=== PATIENT | female | born 1995 | race Two or more races ===

== ENCOUNTER 2022-02-16 03:20 | Observation (INO) | payer SELFPAY ==
[~2022-02-16] VITALS: Ht 152.4 cm; Wt 74.8 kg
[2022-02-16] MEDS ORDERED: TERBUTALINE SULFATE 1 MG/ML 1ML VIAL SC ONE (03:50)
[2022-02-16] MEDS ORDERED: TERBUTALINE SULFATE 1 MG/ML 1ML VIAL SC SCH (04:00)
== END 2022-02-16 05:18 | disposition home or self-care (01) ==
LOC: LDRP 03:20
PROVIDERS: ADMIT Obstetrics & Gynecology Obstetrics; ATTEND Obstetrics & Gynecology Obstetrics
DX: O62.9 Abnormality of forces of labor, unspecified (principal); O99.891 Other specified diseases and conditions complicating pregnancy; M54.9 Dorsalgia, unspecified; Z3A.36 36 weeks gestation of pregnancy
CPT/HCPCS: 59025; 81002; 94760; 96372; G0378; J3105

== ENCOUNTER 2022-02-28 17:05 | Inpatient (IN) | payer MEDICAID, OTHER ==
[~2022-02-28] VITALS: Ht 160 cm; Wt 72.6 kg
[2022-02-28] MEDS ORDERED: LACTATED RINGER'S 1,000 ML IV SCH (17:30)
[2022-02-28] MEDS ORDERED: PROMETHAZINE HCL 25 MG/ML 1ML IV PRN (17:30)
[2022-02-28] MEDS ORDERED: PHISODERM TOP SOLN 240ML BTL TOP PRN (17:30)
[2022-02-28] MEDS ORDERED: BUTORPHANOL TARTRATE 2 MG/1 ML VIAL IV PRN ×2 (17:30)
[2022-02-28] MEDS ORDERED: LIDOCAINE 2%HCL (LOCAL ANESTH.) INJ 10ml MDV IJ PRN (17:30)
[2022-02-28] MEDS ORDERED: PENICILLIN G POT 5MIL/D5 50ML 50 ML IV ONE ×2 (17:45→18:34)
[2022-02-28] MEDS ORDERED: LACT. RINGERS/OXYTOCIN 20UNITS 500 ML IV ONE ×2 (18:15→18:45)
[2022-02-28 18:30] LABS: Basophils # (auto) 0 10 ^3/uL (0-0.2); Basophils % (auto) 0.2 % (0.0-2.0); Eosinophils # (auto) 0.1 10 ^3/uL (0-0.8); Eosinophils % (auto) 0.6 % (0.0-7.0); Hemoglobin 10.9 g/dL (12.2-16.2); Lymphocytes # (auto) 1.6 10 ^3/uL (0.4-5.4); Lymphocytes % (auto) 15.9 % (10.0-50.0); Mean Corpuscular Hemoglobin 27.5 pg (28.0-32.0); Mean Corpuscular Hgb Conc. 34.1 g/dL (32.0-36.0); Mean Corpuscular Volume 80.6 fL (80.0-100.0); Monocytes # (auto) 0.8 10 ^3/uL (0-1.3); Monocytes % (auto) 7.6 % (0.0-12.0); Neutrophils # (auto) 7.6 10 ^3/uL (1.6-8.6); Neutrophils % (auto) 75.7 % (37.0-80.0); Nucleated Red Blood Cells % 0.2 %; Red Blood Cells 3.97 10^6/uL (4.0-5.20); Red Cell Distribution Width 14.2 % (11.8-14.3); White Blood Cell 10.1 10^3/uL (4.4-10.8)
[2022-02-28 18:46] LABS: INR 0.94 (0.9-1.15); Partial Thromboplastin Time 26.1 sec (24.6-33.4)
[2022-02-28 18:57] LABS: Albumin 2.6 g/dL (3.4-5.0); BUN/Creatinine Ratio 15.3; Calcium 8.5 mg/dL (8.5-10.1)
[2022-02-28 19:00] LABS: Bilirubin, Total 0.3 mg/dL (0.2-1.0); Total Protein 6.6 g/dL (6.4-8.2)
[2022-02-28] MEDS ORDERED: LACTATED RINGER'S 1,000 ML IV ONE (19:45)
[2022-02-28] MEDS ORDERED: ePHEDrine SULFATE 50 MG/ML AMP IV ONE (19:45)
[2022-02-28] MEDS ORDERED: ROPIVACAINE HCL 200 ML EPI SCH (19:45)
[2022-02-28] MEDS ORDERED: LIDOCAINE HCL 2 %PF INJ 10ML AMP IJ ONE (19:45)
[2022-02-28] MEDS ORDERED: fentaNYL CITRATE 100 MCG/2 ML VL IV ONE (19:45)
[2022-02-28] MEDS ORDERED: NALOXONE HCL 0.4 MG/ML VIAL IV ONE (19:45)
[2022-02-28] MEDS: ROPIVACAINE HCL 200 ML EPI SCH (20:29)
[2022-02-28 21:08] LABS: Urine Blood Negative /uL (Negative)
[2022-02-28 21:32] LABS: Alcohol, Urine < 3.0 mg/dL (0-10); Amphetamine Screen, Urine NEGATIVE (NEGATIVE); Barbiturate Scree,Urine NEGATIVE (NEGATIVE); Benzodiazephine Screen, Urine NEGATIVE (NEGATIVE); Cannabinoid Screen, Urine NEGATIVE (NEGATIVE); Cocaine Screen, Urine NEGATIVE (NEGATIVE); Opiate Scree,Urine NEGATIVE (NEGATIVE); Phencyclidine Screen, Urine NEGATIVE (NEGATIVE)
[2022-02-28] MEDS: PENICILLIN G POTASSIUM 2,500,000 UNITS in D5W 5% 50 ML IV SCH (23:31)
[2022-03-01] MEDS ORDERED: LACT. RINGERS/OXYTOCIN 20UNITS 1,000 ML IV SCH (02:15)
[2022-03-01] MEDS: PENICILLIN G POTASSIUM 2,500,000 UNITS in D5W 5% 50 ML IV SCH ×3 (03:04→10:52)
[2022-03-01] MEDS ORDERED: ONDANSETRON HCL 4 MG/2 ML VIAL IV PRN (04:30)
[2022-03-01] MEDS ORDERED: METHYLERGONOVINE MALEATE 0.2 MG/ML AMP IM ONE (07:01)
[2022-03-01] MEDS: WITCH HAZEL-GLYCERIN PAD TOP PRN (10:51)
[2022-03-01] MEDS: DERMOPLAST 60ML BOTTLE TOP PRN (10:51)
[2022-03-01] MEDS ORDERED: LIDOCAINE 2%HCL (LOCAL ANESTH.) INJ 20ML MDV ONE (10:54)
[2022-03-01] MEDS: ROPIVACAINE HCL 200 ML EPI SCH (11:12)
[2022-03-01] MEDS ORDERED: ACETAMINOPHEN 325 MG TAB PO PRN (13:00)
[2022-03-01] MEDS ORDERED: DOCUSATE SOD 100 MG CAP PO PRN (13:00)
[2022-03-01] MEDS ORDERED: ONDANSETRON ODT 4 MG TAB PO PRN ×2 (13:00→13:30)
[2022-03-01 15:00] VITALS: BP 97/50
[2022-03-01] MEDS: ACETAMINOPHEN 325 MG TAB PO PRN (15:35)
[2022-03-01] MEDS ORDERED: IBUPROFEN 800 MG TAB PO SCH (18:00)
[2022-03-01 18:30] VITALS: BP 101/59
[2022-03-01] MEDS: IBUPROFEN 800 MG TAB PO SCH (20:55)
[2022-03-01] MEDS ORDERED: DOCUSATE SOD 100 MG CAP PO SCH (22:00)
[2022-03-01 23:30] VITALS: BP 100/62
[2022-03-02 03:30] VITALS: BP 104/65
[2022-03-02] MEDS: IBUPROFEN 800 MG TAB PO SCH ×3 (04:01→13:12)
[2022-03-02] MEDS ORDERED: IBUP600T27 PO (04:14)
[2022-03-02 06:06] LABS: Rubella Antibodies, IgG 4.67 index (Immune >0.99)
[2022-03-02 06:18] LABS: RPR Non Reactive (Non Reactive)
[2022-03-02 06:59] VITALS: BP 102/59
[2022-03-02] MEDS: ACETAMINOPHEN 325 MG TAB PO PRN (10:30)
[2022-03-02 10:38] VITALS: BP 100/64
[2022-03-02] MEDS: WITCH HAZEL-GLYCERIN PAD TOP PRN (13:11)
[2022-03-02] MEDS: DERMOPLAST 60ML BOTTLE TOP PRN (13:11)
== END 2022-03-02 14:18 | disposition home or self-care (01) | DRG 560 ==
LOC: LDRP 17:05 → OBSVTOIN 17:10
PROVIDERS: ADMIT Obstetrics & Gynecology; ATTEND Obstetrics & Gynecology
PROC: 10E0XZZ Delivery of Products of Conception, External Approach (ICD-10-PCS; principal; 2022-03-01)
PROC: 3E0R3BZ Introduction of Anesthetic Agent into Spinal Canal, Percutaneous Approach (ICD-10-PCS; 2022-03-01)
PROC: 00HU33Z Insertion of Infusion Device into Spinal Canal, Percutaneous Approach (ICD-10-PCS; 2022-03-01)
DX: O69.81X0 Labor and delivery complicated by cord around neck, without compression, not applicable or unspecified (principal); Z37.0 Single live birth; O62.3 Precipitate labor; Z3A.38 38 weeks gestation of pregnancy; Z20.822 Contact with and (suspected) exposure to COVID-19
CPT/HCPCS: 36415; 59025; 59409; 62282; 76815; 80053; 80307; 81001; 85025; 85610; 85730; 86592; 86703; 86762; 86850; 86900; 86901; 87340; 87426; 94760; 94762; 96360; 96361; 96365; 96366; 96374; G0378; J2405; J2540; J2590; J7060; Q0162

== ENCOUNTER 2022-07-31 19:20 | Emergency (ER) | payer MEDICAID ==
[~2022-07-31] VITALS: Ht 160 cm; Wt 72.2 kg
[~2022-07-31 19:20] MED LIST: IBUP600T27 PO
[2022-07-31] MEDS ORDERED: ONDANSETRON HCL 4 MG/2 ML VIAL IV ONE (20:15)
[2022-07-31] MEDS ORDERED: SODIUM CHLORIDE 0.9% 1,000 ML IVB ONE (20:15)
[2022-07-31 20:52] VITALS: BP 108/70
[2022-07-31 21:26] LABS: Basophils # (auto) 0 10 ^3/uL (0-0.2); Basophils % (auto) 0.2 % (0.0-2.0); Eosinophils # (auto) 0.2 10 ^3/uL (0-0.8); Eosinophils % (auto) 2.6 % (0.0-7.0); Hematocrit 35.9 % (36.0-46.0); Hemoglobin 12.6 g/dL (12.2-16.2); Lymphocytes # (auto) 2.3 10 ^3/uL (0.4-5.4); Lymphocytes % (auto) 25.6 % (10.0-50.0); Mean Corpuscular Hemoglobin 28.8 pg (28.0-32.0); Mean Corpuscular Volume 82.1 fL (80.0-100.0); Monocytes # (auto) 0.6 10 ^3/uL (0-1.3); Neutrophils # (auto) 5.8 10 ^3/uL (1.6-8.6); Neutrophils % (auto) 64.6 % (37.0-80.0); Red Blood Cells 4.37 10^6/uL (4.0-5.20); Red Cell Distribution Width 13.6 % (11.8-14.3); White Blood Cell 9.1 10^3/uL (4.4-10.8)
[2022-07-31 21:44] LABS: Albumin 3.7 g/dL (3.4-5.0); Calcium 8.8 mg/dL (8.5-10.1); Potassium 3.7 mmol/L (3.5-5.1)
[2022-07-31 21:48] LABS: Urine Bacteria FEW /hpf (None Seen); Urine Blood Negative /uL (Negative); Urine Mucus FEW (None Seen); Urine Specific Gravity 1.032 (1.001-1.035); Urine WBC 16 /hpf (0 - 5)
[2022-07-31 21:48] LABS: Bilirubin, Total 0.2 mg/dL (0.2-1.0); Total Protein 7.1 g/dL (6.4-8.2)
== END 2022-08-01 00:21 | disposition left against medical advice (07) ==
LOC: ER 19:20
DX: O21.9 Vomiting of pregnancy, unspecified (principal); R51.9 Headache, unspecified; Z3A.09 9 weeks gestation of pregnancy
CPT/HCPCS: 36415; 76801; 80053; 81001; 84702; 85025; 96361; 96374; 99285; J2405; J7030

== ENCOUNTER 2023-02-09 23:43 | Observation (INO) | payer MEDICAID ==
[~2023-02-09 23:43] MED LIST changes: +IBUP-1454 PO; -IBUP600T27 PO
== END 2023-02-10 01:21 | disposition home or self-care (01) ==
LOC: LDRP 23:43
PROVIDERS: ADMIT Obstetrics & Gynecology; ATTEND Obstetrics & Gynecology
DX: O62.9 Abnormality of forces of labor, unspecified (principal); Z3A.37 37 weeks gestation of pregnancy
CPT/HCPCS: 59025; 81002; 94760; G0378

== ENCOUNTER 2023-02-12 17:23 | Observation (INO) | payer MEDICAID | END 2023-02-12 19:02 | disposition home or self-care (01) | LOC: LDRP 17:23 | PROVIDERS: ADMIT Obstetrics & Gynecology; ATTEND Obstetrics & Gynecology | DX: O62.9 Abnormality of forces of labor, unspecified (principal); O26.893 Other specified pregnancy related conditions, third trimester; R10.30 Lower abdominal pain, unspecified; Z3A.37 37 weeks gestation of pregnancy | CPT/HCPCS: 59025; 81002; 94760; G0378 ==

== ENCOUNTER 2023-02-15 18:58 | Observation (INO) | payer MEDICAID | END 2023-02-15 20:25 | disposition home or self-care (01) | LOC: LDRP 18:58 | PROVIDERS: ADMIT Obstetrics & Gynecology; ATTEND Obstetrics & Gynecology | DX: O62.9 Abnormality of forces of labor, unspecified (principal); O46.93 Antepartum hemorrhage, unspecified, third trimester; O26.893 Other specified pregnancy related conditions, third trimester; R10.30 Lower abdominal pain, unspecified; Z3A.37 37 weeks gestation of pregnancy | CPT/HCPCS: 59025; 81002; 94760; G0378 ==

== ENCOUNTER 2023-03-25 15:29 | Emergency (ER) | payer MEDICAID, OTHER ==
[~2023-03-25] VITALS: Ht 162.6 cm; Wt 80.0 kg
[2023-03-25 18:07] LABS: COVID19 ANTIGEN SOFIA FIA NEGATIVE (NEGATIVE)
[2023-03-25 18:12] VITALS: BP 136/69; PULSE 99; RESP 16; TEMP 99.5; O2SAT 98
[2023-03-25 18:12] LABS: Rapid Influenza A Negative (Negative); Rapid Influenza B Positive (Negative)
[2023-03-25] MEDS ORDERED: BENZ100C97 PO (18:25)
[2023-03-25] MEDS ORDERED: LORA10CA PO (18:25)
[2023-03-25] MEDS ORDERED: TAMIFLU PO (18:25)
[2023-03-25] MEDS ORDERED: ACET500T58 PO (18:25)
== END 2023-03-25 18:29 | disposition home or self-care (01) ==
LOC: ER 15:29
DX: J10.1 Influenza due to other identified influenza virus with other respiratory manifestations (principal); Z20.822 Contact with and (suspected) exposure to COVID-19
CPT/HCPCS: 36415; 87426; 87804

== ENCOUNTER 2024-03-11 06:26 | Emergency (ER) | payer MEDICAID ==
[~2024-03-11] VITALS: Ht 160 cm; Wt 66.1 kg
[~2024-03-11 06:26] MED LIST changes: +ACET500T58 PO; +BENZ100C97 PO; +LORA10CA PO; +TAMIFLU PO
[2024-03-11 07:29] VITALS: BP 97/70; PULSE 92; RESP 20; TEMP 98.3; O2SAT 97
--- NOTE | 2024-03-11 07:50 | ED.PDOC ---
History of Present Illness HPI Comments 28 year URI symptoms. Onset 4 days ago Currently C/o chills, headache, myalgia, runny nose and nasal congestion Took Tylenol 500 mg at 7 am No other medical hx OB: Dr. Villanueva PCP: Dr. Cortes .. Chief Complaint: Flu like Time Seen by MD: 06:50 Reviewed Notes: Nurses Notes, Medications, Allergies Information Source: Patient Past Medical History PAST MEDICAL HISTORY: Denies Surgical History: Denies all surgeries [employer] WORK[employer] History: Denies all [employer] WORK[employer] Hx Family History Family History: Reviewed,noncontributory to illness Social History Smoker: Non-Smoker Alcohol: Denies ETOH Use Drugs: Denies Drug Use Lives In: Home Constitutional: Fever EENTM: No Symptoms Reported Respiratory: No Symptoms Reported Cardiovascular: No Symptoms Reported Gastrointestinal: No Symptoms Reported Genitourinary: No Symptoms Reported Neurological: No Symptoms Reported Musculoskeletal: No Symptoms Reported Integumentary: No Symptoms Reported Allergic/Immunocompromised: others Hematologic/Lymphatic: No Symptoms Reported Endocrine: No Symptoms Reported Psychiatric: No symptoms Reported All Other Systems: Reviewed and Negative Physical Exam General Appearance: No Apparent Distress, Normal HEENT: Normal ENT Inspection, Pharynx Normal, TMs Normal Neck: Full Range of Motion, Non-Tender, Normal, Normal Inspection Respiratory: Chest Non-Tender, Lungs Clear, No Accessory Muscle Use, No Respiratory Distress, Normal Breath Sounds Cardiovascular: No Edema, No JVD, No Murmur, No Gallop, Normal Peripheral Pulses, Regular Rate/Rhythm Breast Exam: Deferred Gastrointestinal: No Organomegaly, Non Tender, No Pulsatile Mass, Normal Bowel Sounds, Soft Genitalia: Deferred Pelvic: Deferred Rectal: Deferred Extremities: No calf tenderness, Normal capillary refill, Normal inspection, Normal range of motion, Non-tender, No pedal edema Musculoskeletal : Apperance: Normal Neurologic: Alert, 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 Was a procedure done?: No Fever Differential Dx Differential Diagnosis: Viral Syndrome X-Ray, Labs, Meds, VS Vital Signs Date Time Temp Pulse Resp B/P (MAP) Pulse Ox O2 Delivery O2 Flow Rate FiO2 03/11/24 07:29 98.3 92 20 97/70 (79) 97 98.3 03/11/24 07:29 92 20 97 Room Air 03/11/24 06:34 98.3 92 20 97/70 (79) 97 X-Ray, Labs, Meds, VS Comment History and physical consistent of URI Take medication as prescribed No concerns for pneumonia at this time. No risk factors. No indication for antibiotics Discussed that cough can linger up to 6 weeks after viral URI ED precautions if cough does not alleviate or if cough worsens Supportive care and return precautions discussed Counseled viral infection and explained that antibiotics would not be helpful in resolving the illness sooner. Recommended vitamin C, rest, handwashing, and symptomatic care. Expect 2-week course with possibly of cough lingering up to 6 weeks. Nonpharmacological remedies for fluids has been recommended as well Time of 1ST Reevaluation: 09:00 Reevaluation 1ST: Improved Patient Education/Counseling: Diagnosis, Treatment Family Education/Counseling: Diagnosis, Treatment Departure 1 Departure Time of Disposition: 09:01 Impression: Primary Impression: Viral syndrome Disposition: 01 HOME / SELF CARE / HOMELESS Condition: Stable Discharged With: Self Critical Care Note Critical Care Time?: No Stability Stability form required: No Heart Score Heart Score: Heart Score Response (Comments) Value History N/A 0 EKG N/A 0 Age N/A 0 Risk Factors N/A 0 Troponin N/A 0 Total 0 AUSTYN BRODERICK LEAD BURNER Mar 11, 2024 07:50
== END 2024-03-11 09:02 | disposition home or self-care (01) ==
LOC: ER 06:26
DX: O98.511 Other viral diseases complicating pregnancy, first trimester (principal); B34.9 Viral infection, unspecified; Z3A.01 Less than 8 weeks gestation of pregnancy